=== PATIENT | female | born 1985 | race Caucasian/White ===

== ENCOUNTER 2018-11-07 01:50 | Inpatient (IN) | payer OTHER, SELFPAY ==
[2018-11-07 02:11] VITALS: BMI 24.5
[2018-11-07 02:46] LABS: Hemoglobin 12.3 g/dL (12.0-16.0); Mean Corpuscular HGB CONC 33.7 g/dL (32.0-36.0); Mean Corpuscular Hemoglobin 30.5 pg (27.0-31.0); Mean Corpuscular Volume 90.6 fL (78.0-98.0); Mean Platelet Volume 8.8 fL (7.4-10.4); Platelet Count 202 thou/uL (130-400); RBC Distribution Width 11.8 % (11.5-14.5); Red Blood Cell (RBC) Count 4.03 mill/uL (4.20-5.40)
[2018-11-07] MEDS ORDERED: Fentanyl 4 mcg/Bup 0.1% Cadd 100 ML ONE (02:50)
[2018-11-07] MEDS ORDERED: Acetaminophen 500 MG TAB PO PRN (02:54)
[2018-11-07] MEDS ORDERED: Butorphanol Tartrate 1 MG/ML VIAL SLOW IVP PRN (02:54)
[2018-11-07] MEDS ORDERED: Lidocaine 1% (PF) 30 ML VIAL SC PRN (03:00)
[2018-11-07] MEDS ORDERED: Penicillin G Potassium 2.5 MILL.UNITS in Sodium Chloride 0.9% 100 ML IVPB SCH (03:00)
[2018-11-07] MEDS ORDERED: NS w/ Oxytocin 10 units 500 ML IV SCH ×2 (03:00)
[2018-11-07] MEDS ORDERED: Misoprostol 200 MCG TAB RC PRN (03:00)
[2018-11-07] MEDS ORDERED: Methylergonovine 0.2 MG/ML VIAL IM PRN (03:00)
[2018-11-07] MEDS ORDERED: Penicillin G Potassium 5 MILL.UNITS in Sodium Chloride 0.9% 100 ML IVPB SCH (03:00)
[2018-11-07] MEDS ORDERED: Ibuprofen 800 MG TAB PO PRN (03:00)
[2018-11-07] MEDS: Lactated Ringer's 1,000 ML IV SCH ×2 (03:10→03:30)
[2018-11-07 03:25] LABS: Hep B Surf Ag Non-Reactive S/CO (NonReactive)
[2018-11-07] MEDS ORDERED: Naloxone HCl 0.4 mg/ml Vial IVP PRN ×2 (03:49)
[2018-11-07] MEDS ORDERED: Promethazine HCl 25 MG/ML VIAL IM PRN (03:49)
[2018-11-07] MEDS ORDERED: Ondansetron PF 4 MG/2 ML Vial IVP PRN (03:49)
[2018-11-07] MEDS ORDERED: ePHEDrine/0.9% NaCl/PF SYRINGE 50 mg/10 ml SLOW IVP PRN (03:49)
[2018-11-07] MEDS ORDERED: Lactated Ringer's 500 ML IV PRN (03:49)
[2018-11-07] MEDS ORDERED: Eucerin (Mineral Oil/Petrolatum,White) 30 gm Jar TOP PRN (03:49)
[2018-11-07] MEDS ORDERED: diphenhydrAMINE 50 MG/ML VIAL IVP PRN (03:49)
[2018-11-07] MEDS ORDERED: Acetaminophen 325 MG TAB PO PRN (03:49)
[2018-11-07] MEDS ORDERED: Communication Order-Pharmacy FS SCH (04:00)
[2018-11-07] MEDS ORDERED: Fentanyl 4 mcg/Bupivacaine 0.1% Cassette 100 ML EPIDURAL SCH (04:00)
[2018-11-07 04:33] LABS: Syphilis Antibody Nonreactive (Nonreactive); Syphilis Antibody Index 0.07 S/CO (<1.00 Non-Reactive)
[2018-11-07] MEDS ORDERED: Penicillin G 2.5 MILL.units 50 ML ONE (07:43)
[2018-11-07] MEDS ORDERED: Bisacodyl 10 MG SUPP PR PRN (10:24)
[2018-11-07] MEDS ORDERED: NS / Oxytocin 40 units/1000ml 1,000 ML IV SCH (10:24)
[2018-11-07] MEDS ORDERED: Milk Of Magnesia 30 ML UDCUP PO PRN (10:24)
[2018-11-07] MEDS ORDERED: HYDROcodone/Acetaminophen 5/325 mg Tablet PO PRN (10:24)
[2018-11-07] MEDS ORDERED: Bupivacaine/Epinephrine 0.5% 10 ML VIAL ONE (11:11)
[2018-11-07] MEDS: Ibuprofen 800 MG TAB PO SCH (15:03)
[2018-11-07] MEDS: Ferrous Sulfate 325 MG TAB PO SCH (16:47)
--- NOTE | 2018-11-07 22:12 | OP ---
DATE OF PROCEDURE: 11/07/2018 PREOPERATIVE DIAGNOSIS: Term intrauterine . POSTOPERATIVE DIAGNOSES: Term intrauterine as well as a first-degree perineal laceration. PROCEDURE PERFORMED: Normal spontaneous vaginal delivery. ANESTHESIA: Epidural. ESTIMATED BLOOD LOSS: 300 mL. BRIEF DELIVERY SUMMARY: This is a 33-year-old, G2, now P2, who presented in active labor. She progressed well to complete and pushing. well-being throughout the labor course was reassuring. She delivered a live male head away. Mouth and nares were bulb suctioned at the perineum. There was no nuchal cord. Shoulders and body easily followed and the infant was placed on mother's abdomen. The umbilical cord was doubly clamped and cut, and cord blood was collected and sent for analysis. At the patient's request, cord blood and cord section were also collected and sent for banking. The placenta delivered spontaneously and intact with a three-vessel umbilical cord. The cervix, vagina and perineum were inspected for lacerations and there was a first-degree perineal laceration which was repaired in standard running fashion using 2-0 Vicryl suture under epidural anesthesia with excellent hemostasis. Mom and baby were left with the nurse in excellent condition attempting to breastfeed. Job ID: [id number]
[2018-11-08] MEDS: Docusate Calcium (SURFAK) 240 MG CAP PO SCH ×2 (02:39→09:04)
[2018-11-08] MEDS: Ibuprofen 800 MG TAB PO SCH ×3 (02:40→13:22)
--- NOTE | 2018-11-08 08:40 | PDOC.PP ---
Post Progress Note Post Day #: 1 Subjective: Doing well. NO c/o. Feeding well. Lochia normal. PO intake tolerated: yes Flatus: yes Ambulation: yes Vital Signs (12 hours) Temp Pulse Resp BP BP 11/08/18 05:00 98.1 F 88 17 100/67 11/08/18 00:20 98.0 F 85 17 104/55 L Weight Weight 157 lb - Physical Examination General: NAD Cardiovascular: no m/r/g, RRR Respiratory: clear to auscultation bilaterally, non-labored breathing Abdominal: + bowel sounds, lochia, no distention, appropriately TTP Result Diagrams: 11/07/18 02:34 Additional Labs: Post Labs Blood Type A POSITIVE 11/07/18 02:47 Hep Bs Antigen Non-Reactive S/CO (NonReactive) 11/07/18 02:34 (1) Vaginal delivery Code(s): O80 - ENCOUNTER FOR FULL-TERM UNCOMPLICATED DELIVERY Status: Acute - Assessment/Plan Routine PP care Ready for D/C home F/U in 2 weeks - prior to travel back home
[2018-11-08] MEDS ORDERED: Adacel (T-DAP) 0.5 ML SYRINGE IM ONE (09:00)
[2018-11-08] MEDS: Ferrous Sulfate 325 MG TAB PO SCH (09:03)
[2018-11-08 10:00] VITALS: BP 102/58; TEMP 97.8
== END 2018-11-08 13:25 | disposition home or self-care (01) | DRG 807 ==
LOC: L&D/OP 01:50 → L&D 02:21 → 3SW 10:49
PROVIDERS: ADMIT Family Medicine; ATTEND Family Medicine
PROC: 10E0XZZ Delivery of Products of Conception, External Approach (ICD-10-PCS; principal; 2018-11-07)
PROC: 0HQ9XZZ Repair Perineum Skin, External Approach (ICD-10-PCS; 2018-11-07)
DX: O70.0 First degree perineal laceration during delivery (principal); Z37.0 Single live birth; Z3A.37 37 weeks gestation of pregnancy
CPT/HCPCS: 36415; 51702; 85027; 86780; 86850; 86900; 86901; 87340; 99285; J2540; J3490; J7120